=== PATIENT | male | born 1990 | race Caucasian/White ===

== ENCOUNTER 2017-02-05 09:14 | Inpatient (IN) ==
[2017-02-05 10:19] LABS: Basophils # 0.2 10*3/uL (0.0-0.2); Eosinophils # 6.7 10*3/uL (0.0-0.87); Eosinophils % 45.8 % (0.00-10.9); Hematocrit 48.7 VOL% (42.0-52.0); Hemoglobin 17.5 GM/DL (14.0-18.0); Immature Granulocytes % 0.3 %; Immature Granulocytes Absolute 0.04 #; Lymphocytes # 2.4 10*3/uL (1.4-4.0); Lymphocytes % 16.6 % (21.2-54.2); Mean Corpuscular HGB Conc 35.9 GM/DL (32-36); Mean Corpuscular Hemoglobin 32 PG (27-34); Mean Corpuscular Volume 89.5 FL (87-102); Mean Platelet Volume 10.3 FL (9.6-12.0); Monocytes # 0.6 10*3/uL (0.11-0.8); Monocytes % 4.1 % (1.7-12.7); Neutrophils # 4.7 10*3/uL (1.4-7.4); Neutrophils % 32.2 % (38.7-73.9); Platelet Count 190 T/CUMM (130-400); Red Blood Count 5.44 MC/CUMM (3.8-5.5); Red Cell Distribution Width 12.6 % (9.3-17.3); White Blood Count 14.7 T/CUMM (4-12)
--- NOTE | 2017-02-05 10:33 | CT Report ---
CT abdomen pelvis wo con Indication: Right lower quadrant abdominal pain. CT ABDOMEN AND PELVIS WITHOUT CONTRAST DLP: 205 mGy*cm. One or more of the following dose reduction techniques was used: Automated exposure control, adjustment of the mA and/or kV according the patient size, or use of iterative reconstruction techniques. Comparison: None. Technique: Axial noncontrast CT images of the abdomen and pelvis were obtained. Abdomen: Nonobstructing bilateral nephrolithiasis is present. Largest stone is 3 mm in the right kidney. Unenhanced kidneys are otherwise unremarkable. Heart size is normal. Lung bases are clear. Unenhanced liver, spleen, pancreas, gallbladder and adrenal glands are unremarkable. No bowel obstruction. Inflammation is present along the right paracolic gutter tracking into the right pelvis. Pelvis: The visualized appendix is gas-filled and normal in size. There is inflammation adjacent to the origin of the appendix and cecum as well as small amount of inflammation involving the terminal ileum. Urinary bladder is contracted. Large fat-containing right inguinal hernia is present and may be slightly inflamed as well. It does not contain bowel. Rectosigmoid colon is unremarkable. No free fluid. Impression: 1. Nonspecific inflammation around the cecum and terminal ileum with a normal-appearing gas-filled appendix. Query focal colitis or typhlitis, versus inflammation from #2. 2. Fat-containing right inguinal hernia with mild inflammation associated with the fat. It contains no bowel. This fatty lobulation may be intermittently incarcerated and may cause inflammation of the adjacent tissues including the cecal region. PROCEDURE INTERPRETED AT [facility] DEPARTMENT OF RADIOLOGY Final Report Signed by: Magdiel Gandhi M.D.
[2017-02-05 10:37] LABS: Apearance,Urine CLEAR (Clear); Bilirubin,Urine Negative (Negative); Blood, Urine Negative (Negative); Glucose,Urine (UA) Negative (Negative); Ketones,Urine Negative (Negative); Nitrite,Urine Negative (Negative); Protein,Urine Negative; Urine Color Yellow (Yellow); Urine Specific Gravity 1.012 (1.001-1.035); Urine Urobilinogen < 2.0 EU/DL (0.2-1.0); WBC,Urine <1 /HPF (0-6)
[2017-02-05 10:42] LABS: Eosinophils 50 % (0-10); Lymphocytes 17 % (20-55); Platelet Estimate Normal; Segmented Neutrophils 30 % (50-85); Total Cells Counted 100
[2017-02-05 10:43] LABS: Hypochromasia Slight; Ovalocytes Slight
[2017-02-05 10:50] LABS: Alanine Aminotransferase 36 U/L (16-61); Albumin 4.2 G/DL (3.4-5.0); Alkaline Phosphatase 65 U/L (45-117); Aspartate Amino Transferase 17 U/L (0-37); Bilirubin,Total < 0.39 MG/DL (0.2-1.0); Blood Urea Nitrogen 10 MG/DL (7-18); Calcium 9.2 MG/DL (8.5-10.1); Glucose 97 MG/DL (74-106); Osmolality,Calculated 277.4 MOS/KG (273-304); Potassium 4.4 MMOL/L (3.5-5.1); Sodium 140 MMOL/L (136-145)
--- NOTE | 2017-02-05 10:56 | Emergency Department Note ---
Zion Cesar Rolonda, am scribing for, and in the presence of, Michael Rogers MD 10:04. Sue Cesar Phillip K, MD, personally performed the services described in this documentation, ascribed by Aaron Donovan in my presence, and it is both accurate and complete 056 . Arrival - Arrival Chief Complaint: Urogenital - Male Stated Complaint: stomach extreme stomach pain ED Nursing Triage Note: pain around umbilical area that radiates down into groin and then into right lower back that started one week ago. pt reports that he has used laxatives at home without relief. reports he was dx with a testicular mass when he was 14 and told to follow up with specialist. reports he never did follow up. reports mass in that area has gotten bigger. Mode of Arrival: Ambulatory Limitations: No Limitations Source: Patient, Old Records Reviewed, RN Notes Reviewed - History of Present Illness HPI Narrative: Pt is a 26 y/o male who presents to the ED with c/o abdominal pain with an onset of x1 week. Pt has a PMHx of testicular mass. Pt states that he was Dx with a testicular mass 12 years ago but has not f/u since. He states that the testicular pain is causing the abdominal pain and it radiates down to the groin. He states that his appetite and BM has been nml; last BM was this morning. Pt denies N/V, hematuria, dysuria, but confirms diarrhea. No other complaint/pain in ED. Onset (ago): week(s) Consistency: constant Severity: moderate Severity scale (1-10): 4 Quality: other (radiating) Allergies/Adverse Reactions: Allergies Allergy/AdvReac Type Severity Reaction Status Date / Time Penicillins Allergy Unknown/Unable Verified 10/03/16 10:19 to obtain Home Medications: Home Medications Medication Instructions Recorded Confirmed Type No Known Home Medications [No 02/05/17 02/05/17 History Known Home Medications] Review of System - Review of System 12 point system: reviewed and no additional remarkable complaints except as stated - Review of System Constitutional: Absent: chills, fever Eyes: Absent: discharge Head/Ears/Nose/Throat: Absent: earache Respiratory: Absent: cough Cardiovascular: Absent: chest pain Gastrointestinal: Present: abdominal pain Genitourinary male: Present: testicular pain, testicular mass. Absent: urgency , dysuria, hematuria Musculoskeletal: Absent: arm pain, back pain Skin: Absent: rash Neurological: Absent: headache Psychiatric: Absent: anxiety Endocrine: Absent: cold intolerance Hematological/Lymphatic: Absent: easy bleeding Allergic/Immunologic: Absent: facial swelling Medical,Surgical,& Family Hx - Medical History Reproductive: Reports: Reproductive Problems (testicle mass) - Social History Smoking Status: Smoker, status unknown Exam Vital Signs: Vital Signs Temperature 99.1 F 02/05/17 09:17 Pulse Rate 72 02/05/17 09:17 Respiratory Rate 18 02/05/17 09:17 Blood Pressure 122/92 02/05/17 09:17 O2 Sat by Pulse Oximetry 99 02/05/17 09:17 - General General appearance: alert, in no apparent distress - Head Head exam: Present: atraumatic, normocephalic - Eye Eye exam: Present: PERRL, EOMI - ENT ENT exam: Present: mucous membranes moist. Absent: mucous membranes dry - Neck Neck exam: Present: full ROM. Absent: tenderness - Chest Chest inspection: Present: symmetric chest wall rise. Absent: tenderness - Respiratory Respiratory exam: Present: normal lung sounds bilaterally. Absent: wheezes - Cardiovascular Cardiovascular exam: Present: regular rate, normal rhythm, normal heart sounds. Absent: bradycardia - Abdominal Exam Abdominal exam: Present: soft, tenderness (RLQ tenderness to palpate; LLQ), other (swelling at right inguinal canal ) - Extremities Exam Extremities exam: Present: full ROM. Absent: tenderness - Back Exam Back exam: Present: full ROM. Absent: tenderness - Neurological Exam Neurological exam: Present: alert, oriented X3, CN II-XII intact - Psychiatric Psychiatric exam: Present: normal affect, normal mood - Skin Skin exam: Present: warm, dry, intact, normal color. Absent: rash Course Course Narrative: Patient discussed with Dr. Hester. Results - Labs CBC & BMP: 02/05/17 10:07 02/05/17 10:07 Lab Results: I have reviewed the patients labs Labs: Laboratory Tests 02/05/17 02/05/17 10:07 10:07 WBC 14.7 H RBC 5.44 Hgb 17.5 Hct 48.7 Plt Count 190 Neut % (Auto) 32.2 L Lymph % (Auto) 16.6 L Eos % (Auto) 45.8 H Baso % (Auto) 1.0 H Eos # (Auto) 6.7 H Segmented Neutrophils 30 L Lymphocytes 17 L Eosinophils 50 H Urine pH 7.0 Ur Specific Fowler 1.012 Urine Protein Negative Urine Glucose (UA) Negative Urine Ketones Negative Urine Blood Negative Urine Nitrate Negative Urine Bilirubin Negative Urine Urobilinogen < 2.0 H Urine Leukocytes Negative Urine WBC <1 Ur Culture Indicated? Not indicated Laboratory Tests 02/05/17 10:07 Sodium 140 Potassium 4.4 Chloride 109 H Carbon Dioxide 27 BUN 10 GFR Calculation 120 Glucose 97 AST 17 - Diagnostic Findings Procedure: CT Abdomen and Pelvis: report reviewed by me (1. Nonspecific inflammation around the cecum and terminal ileum with a normal-appearing gas- filled appendix. Query focal colitis it typhilitis, versus inflammation from # 2. 2. Fat-containing right inguinal hernia with mild inflammation associated with the fat. It contains no bowel. This fatty lobulation may be intermittently incarcerated and may cause inflammation of the adjacent tissues including the cecal region.) Disposition Clinical Impression: Right inguinal hernia, Right lower quadrant abdominal pain Case discussed with: patient Disposition: Still a Patient Condition: Guarded Additional Instructions: Admit to Dr. Hester
[2017-02-05] MEDS ORDERED: KETOROLAC 10 MG TABLET PO PRN (12:11)
[2017-02-05] MEDS ORDERED: BISACODYL 5 MG TABLET PO PRN (12:11)
[2017-02-05] MEDS ORDERED: ONDANSETRON 4 MG/2 ML VIAL IV PRN (12:11)
[2017-02-05] MEDS ORDERED: PROMETHAZINE 25 MG/1 ML VIAL IM PRN (12:11)
[2017-02-05] MEDS ORDERED: ACETAMINOPHEN 325 MG TABLET PO PRN (12:11)
--- NOTE | 2017-02-05 14:13 | General Surg History&Physical ---
Assessment and Plan - Time spent with patient Time spent with patient: Greater than 30 minutes (1) Typhlitis Status: Acute Assessment and plan: 26-year-old white male with history of dental problems admitted by Dr. Dover through the emergency room with abdominal pain. Patient does have a right inguinal hernia with some inflammatory changes. He also has a questionable typhlitis. Patient was admitted, started on Cipro and Flagyl, pain and nausea control. Dr. Liao from gastroenterology will be consulted to evaluate. We will go ahead and get labs in the morning. Dr. Dover has seen and examined patient and further recommendations to follow Current Visit: Yes (2) Right inguinal hernia Status: Acute Current Visit: Yes (3) Right lower quadrant abdominal pain Status: Acute Current Visit: Yes History of Present Illness Chief complaint: Abdominal pain History of present illness: Mr. Duque is a 26 year old white male with history of dental problems admitted by Dr. Dover through the emergency room on 02/05/2017 with abdominal pain 1 week. Patient states it started approximately 1 week ago with it in the center of his stomach and it radiates down into the groin and around to his back. Patient describes it as a stabbing pain with cramping and some distention. Patient states when he eats he does get nauseated. He says he has bad teeth and he takes clindamycin off and on for dental issues prior to extractions. He states he does take a lot of Tylenol and Motrin for his dental pain. Patient denies hematemesis or hematochezia. Patient denies headaches, chest pain, shortness of breath, or lower extremity edema. Patient states he did have some nausea today and did vomit a little one time. He states his bowel movements have basically been normal. Patient is afebrile and his vital signs are stable. His white count is elevated to 14.7, CMP is normal, and a UA is negative. CT scan of the abdomen and pelvis showing nonspecific inflammation around the cecum and terminal ileum with normal appendix. Questioning focal colitis or typhlitis versus inflammation from a fat-containing right inguinal hernia. Upon exam, patient is mildly uncomfortable due to pain. He is tender in the right lower quadrant but he has no peritoneal signs or rebound. Patient' s is present and she is very helpful. Home Medications Medication Instructions Recorded Confirmed Type No Known Home Medications [No 02/05/17 02/05/17 History Known Home Medications] Allergies Allergy/AdvReac Type Severity Reaction Status Date / Time Penicillins Allergy Unknown/Unable Verified 10/03/16 10:19 to obtain Medical,Surgical,& Family Hx - Medical History HEENT: History of: Dental Problems Reproductive: Reports: Reproductive Problems (testicle mass) - Surgical History Additional Surgical History: Multiple dental surgeries - Family History Family History: Reports;: Family Heart Disease - Social History Smoking Status: Current every day smoker Frequency of Alcohol Use: None Type of Drug Use: None Marital Status: Lives With:: Spouse Functional capacity: independent ambulation Exam - Constitutional Vitals: Period Temp Pulse Resp BP Sys/Contreras Pulse Ox Last 24 Hr 99.1 F-99.1 F 67-78 18-18 105-145/66-92 98-100 Exam: Constitutional System: Mild distress. No tremulousness. Head: Normocephalic, atraumatic. Ears, Nose and Throat System: No evidence of Otitis or Mastoiditis. No epistaxis or discharge Eyes System: Pupils equal, round, and reactive. Extraocular muscles intact. Neck: Supple, without adenopathy, No jugular venous distention. No thyromegaly, neck mass, or prior surgery apparent. Respiratory System: Chest clear to auscultation. Cardiovascular System: Heart with regular rate and rhythm. No murmur. GI System: Abdomen soft, mildly tender right lower quadrant, no peritoneal signs or rebound. Normo active bowel sounds present. Musculoskeletal System: limbs with no pedal edema. Full distal pulses. Neurological System: No discernable sensory deficit. No aphasia Psychiatric System: Conversation is rational Review of systems: A complete 10 system review of systems was obtained and pertinent positives and negatives per HPI Quality Measures - VTE Contraindication to Pharmacological VTE Prophylaxis: Clinical assessment deems Pt at low risk, no prophalaxis needed Results - Labs CBC & BMP: 02/05/17 10:07 02/05/17 10:07 Lab Results: I have reviewed the past 24 hour labs - Diagnostic Findings Procedure: CT Abdomen and Pelvis: report reviewed by me (CT the abdomen and pelvis shows nonspecific inflammation around the cecum and terminal ileum with gas filled appendix. Question focal colitis versus typhlitis versus inflammation from a fat-containing right inguinal hernia that contains no bowel. )
[2017-02-05] MEDS: CIPROFLOXACIN INJ 400 MG in PREMIX 1 EACH IV SCH (14:23)
[2017-02-05] MEDS: LACTATED RINGERS 1,000 ML IV SCH (14:23)
[2017-02-05] MEDS: metroNIDAZOLE INJ 500 MG in PREMIX 1 EACH IV SCH ×2 (15:32→21:18)
[2017-02-05] MEDS: HYDROmorphone 2 MG/1 ML VIAL IV PRN ×2 (18:11→21:24)
--- NOTE | 2017-02-05 19:06 | Gastrointestinal Consult Note ---
Assessment and Plan (1) Right lower quadrant abdominal pain Status: Acute Assessment and plan: Again this patient has 2 distinct pains one is associated with his right inguinal hernia, a intermittent pain that is less annoying than the periumbilical sharp pain. The inguinal hernia is been present since patient was age 14 he states. Given the CT scan findings this is possibly a enterocolitis mostly affecting the cecal/TI region versus possibly Crohn's disease versus less likely C. difficile given his exposure to clindamycin. The major flaw in these particular diagnoses is the lack of diarrhea and the fact that the patient does not feel better after he is evacuating his stool with help of Dulcolax. His presentation certainly atypical from that standpoint however his systemic illness is certainly adding to his nausea and vomiting, gentle hydration, antibiotics and likely some MiraLAX should help out with this pain ultimately. I would like to be able to get him to the point where he can tolerate a clear liquid diet and undergo colonoscopy in order to definitively rule out Crohn's disease while looking for C. difficile vs. infectious colitis. We will monitor his white blood cell count look at his sedimentation rate, try clear liquids and see how he responds to the MiraLAX. Hopefully over the next few days he will feel well enough to tolerate a prep. Risks of colonoscopy include but are not limited to: Bleeding, infection, perforation, cardiac and pulmonary compromise. Current Visit: Yes (2) Abnormal CT scan, pelvis Status: Acute Assessment and plan: I think typhlitis is a condition associated with neutropenia not leukocytosis and usually with a immunocompromised host. This is not typhlitis but rather some sort of enterocolitis some etiology. He is likely not old enough to have ischemic etiologies and so this probably represents either inflammatory bowel disease or some sort of infection, provided this is not just an over read by the radiologist. C. difficile does not affect the small bowel making this more likely to be infectious versus inflammatory bowel disease, i.e. Crohn's. Current Visit: Yes (3) Leukocytosis Status: Acute Assessment and plan: We will need to monitor this over the next several days, as it drops down to the normal range of suspect the patient will be able to tolerate clears and the colonic prep. Current Visit: Yes (4) Right inguinal hernia Status: Acute Assessment and plan: This is the second of the patient's 2 pains, I suspect Dr. Dover will want to do surgery on the patient at some point, likely after we get his current periumbilical pain/right upper quadrant pain under control. Current Visit: Yes History of Present Illness Chief complaint: Periumbilical pain/RLQ pain, TI/cecal inflammation by CT, 14.7 WBCs History of present illness: Mr. Duque is a 26 year old male with a history of inguinal hernia problems on the right side on and off for the last 12 years. Over the last 1 week the patient has had 2 distinct types of pain the first is a dull achy pressure coming from his scrotum and radiating up into his stomach which was worsened by Dr. Dover's exam today and likely corresponds to his right inguinal hernia type pain. The second is also been going on for the last 1 week and is associated with a periumbilical sharp pain with nausea and vomiting especially today that may correspond with the changes seen on CT scan with thickening of the terminal ileum and cecal regions. A gas-filled appendix that is normal in size without fat stranding is noted. Interestingly when you press on his umbilical area (where he states the pain resides) he has less pain than when pressure is applied to the right lower quadrant. He does have a white blood cell count that is elevated to 14.7. Of interest the patient does not have diarrhea and has not throughout this entire week's time. He actually took some Dulcolax to help him pass some stool and although he was passing watery stool this did not make him feel any better. This is not IBS. Patient does have a history of dental problems for which she chronically takes clindamycin but again one would imagine that he would have diarrhea and he was having colitis. There is no family history of inflammatory bowel disease specifically Crohn's that he knows of. There is no family history of colorectal cancer or polyps. He is not feeling fevers or chills specifically. Home Medications Medication Instructions Recorded Confirmed Type No Known Home Medications [No 02/05/17 02/05/17 History Known Home Medications] Allergies Allergy/AdvReac Type Severity Reaction Status Date / Time Penicillins Allergy Unknown/Unable Verified 10/03/16 10:19 to obtain Medical,Surgical,& Family Hx - Medical History HEENT: History of: Dental Problems Reproductive: Reports: Reproductive Problems (testicle mass) - Family History Family History: Reports;: Family Heart Disease - Social History Smoking Status: Current every day smoker Frequency of Alcohol Use: None Type of Drug Use: None Review of systems: Constitutional: Denies fever, chills, but positive for recent nausea, and vomiting, mostly today Eyes: Denies dry eyes, and scleral icterus HENT: Denies headaches Cardiovascular: Denies acute chest pain and claudication Respiratory: Denies shortness of breath, wheezing, and difficulty breathing, denies cough Gastrointestinal: As noted in the HPI Genitourinary: Denies dysuria and hematuria Neurologic: Denies vision loss, and loss of sensation Musculoskeletal: Denies joint swelling, joint stiffness, and muscular weakness Psychiatric: Denies depression and teresa symptoms Heme-Lymph: Denies easy bruising, lymph node enlargement or tenderness, night sweats, excessive bleeding Allergies-immunologic: Denies pruritus and rhinorrhea Exam - Constitutional Vitals: Period Temp Pulse Resp BP Sys/Contreras Pulse Ox Last 24 Hr 98.0 F-99.1 F 57-78 17-18 105-145/45-92 98-100 Exam: Constitutional: Well-developed, well-nourished, alert, and in no acute distress Head and face: Head: Normocephalic atraumatic Eyes: Conjunctiva without injection, no gross scleral icterus, pupils equal and round bilaterally Ears: Intact to conversation in both ears Nose: External appearance is normal, nares patent Mouth: Oral mucous membranes moist without erythema dentition noted to be without erosion Neck: Normal appearance, no masses or tenderness, trachea midline Thyroid: Gland midline and appropriate size for age Respiratory: Normal respiratory effort, clear to auscultation without wheezes, rhonchi or rales Cardiovascular: Regular rate and rhythm, normal S1, S2, the exam is without rubs, murmurs or gallops. Gastrointestinal: Is tenderness to deep palpation in the right lower quadrant but none in the periumbilical region, I did not aggressively check the patient's inguinal canal which had previously been done by Dr. Dover. Normal active bowel sounds, tone normal without rigidity or guarding, no masses present , no hepatomegaly, no spleen tip felt. Rectal exam demonstrated good tone, brown stool, guaiac negative and normal-sized non-boggy prostate. Lymphatic: Neck without adenopathy, axilla without lymphadenopathy present Musculoskeletal: Right and left lower extremities without evidence of edema Skin and subcutaneous tissue: No rashes or ulcerations noted, normal skin turgor, digits and nails without clubbing/cyanosis/deformities. Neurologic: The patient is grossly oriented to person place and time, cranial nerves show tongue movements are normal with normal tongue extrusion midline, light touch sensation is intact. Psychiatric: No hallucinations or delusions are present, does not appear depressed Results - Labs CBC & BMP: 02/05/17 10:07 02/05/17 10:07 Quality Measures - VTE Contraindication to Pharmacological VTE Prophylaxis: Clinical assessment deems Pt at low risk, no prophalaxis needed
[2017-02-05] MEDS: POLYETHYLENE GLYCOL POWDER 17 GM PACK PO SCH (21:16)
[2017-02-06] MEDS: CIPROFLOXACIN INJ 400 MG in PREMIX 1 EACH IV SCH ×3 (00:36→12:30)
[2017-02-06] MEDS: metroNIDAZOLE INJ 500 MG in PREMIX 1 EACH IV SCH ×3 (05:12→21:47)
--- NOTE | 2017-02-06 07:07 | Gastrointestinal Progress Note ---
Assessment and Plan (1) Right lower quadrant abdominal pain Status: Acute Assessment and plan: Again this patient has 2 distinct pains one is associated with his right inguinal hernia, a intermittent pain that is less annoying than the periumbilical sharp pain. The inguinal hernia is been present since patient was age 14 he states. Given the CT scan findings this is possibly a enterocolitis mostly affecting the cecal/TI region versus possibly Crohn's disease versus less likely C. difficile given his exposure to clindamycin. The major flaw in these particular diagnoses is the lack of diarrhea and the fact that the patient does not feel better after he is evacuating his stool with help of Dulcolax. His presentation certainly atypical from that standpoint however his systemic illness is certainly adding to his nausea and vomiting, gentle hydration, antibiotics and likely some MiraLAX should help out with this pain ultimately. I would like to be able to get him to the point where he can tolerate a clear liquid diet and undergo colonoscopy in order to definitively rule out Crohn's disease while looking for C. difficile vs. infectious colitis. We will monitor his white blood cell count look at his sedimentation rate, try clear liquids and see how he responds to the MiraLAX. Hopefully over the next few days he will feel well enough to tolerate a prep. Risks of colonoscopy include but are not limited to: Bleeding, infection, perforation, cardiac and pulmonary compromise. 02/06/17--the patient is going to try his clear liquids today to see have the stay down. We have gotten her stool studies to look at for fecal white blood cells, stool culture, or C. difficile. Again I strongly suspect this patient may either have Crohn's disease versus infectious colitis although C. difficile remains in the differential. We need to track his white blood cell count now that he is on Cipro and Flagyl, these can be switched to oral once he is reliably taking p.o. intake. Possible colonoscopy later this admission if the patient does well with clears we can possibly give him a bowel prep--will write for this tomorrow if he is doing well. Current Visit: Yes (2) Abnormal CT scan, pelvis Status: Acute Assessment and plan: I think typhlitis is a condition associated with neutropenia not leukocytosis and usually with a immunocompromised host. This is not typhlitis but rather some sort of enterocolitis some etiology. He is likely not old enough to have ischemic etiologies and so this probably represents either inflammatory bowel disease or some sort of infection, provided this is not just an over read by the radiologist. C. difficile does not affect the small bowel making this more likely to be infectious versus inflammatory bowel disease, i.e. Crohn's. 02/06/17--As noted above, the patient does not fit the picture of typhlitis. Current Visit: Yes (3) Leukocytosis Status: Acute Assessment and plan: We will need to monitor this over the next several days, as it drops down to the normal range of suspect the patient will be able to tolerate clears and the colonic prep. 02/06/17--CBC from this morning is pending but I suspect the white blood cell count will be significantly improved. Current Visit: Yes (4) Right inguinal hernia Status: Acute Assessment and plan: This is the second of the patient's 2 pains, I suspect Dr. Dover will want to do surgery on the patient at some point, likely after we get his current periumbilical pain/right upper quadrant pain under control. 02/06/17--Treatment as per Dr. Dover. Current Visit: Yes Gastroenterology - PN: Subj Interval history: Patient's pain this morning is down to a 5 out of 10 in the periumbilical region (radiating down to the right lower abdomen this is where he is most tender and still quite touchy when pressed moderately.), The right inguinal pain is down to a 4 out of 10. He has not had any bowel movements despite the MiraLAX but he is probably just going to start is clear liquids today and see how his oral intake proceeds. Exam (Progress Note) - Constitutional Vitals: Period Temp Pulse Resp BP Sys/Contreras Pulse Ox Last 24 Hr 97.6 F-99.1 F 51-78 16-20 105-145/45-92 98-100 General appearance: no acute distress - Eye Eye exam: Present: EOMI Pupils: Present: JERZY - Respiratory Respiratory exam: Present: clear to auscultation bilaterally. Absent: rhonchi, stridor, wheezes - Cardiovascular Cardiovascular exam: Present: regular rate and rhythm - GI/Abdominal GI/Abdominal exam: Present: normal bowel sounds, tenderness (Mostly in the right lower abdomen, moderate today versus severe yesterday on palpation), soft. Absent: distended, guarding, rebound - Neurological Exam Neurological exam: Present: alert, oriented X3 - Psychiatric Psychiatric exam: Present: normal affect, normal mood - Skin Skin exam: Present: warm Results - Labs CBC & BMP: 02/05/17 10:07 02/05/17 10:07
[2017-02-06] MEDS: LACTATED RINGERS 1,000 ML IV SCH ×2 (07:15→09:11)
[2017-02-06] MEDS: PANTOPRAZOLE 40 MG TABLET PO SCH (08:01)
[2017-02-06] MEDS: POLYETHYLENE GLYCOL POWDER 17 GM PACK PO SCH ×2 (08:02→21:46)
[2017-02-06 08:55] LABS: Basophils # 0.1 10*3/uL (0.0-0.2); Basophils % 0.6 % (0.0-0.8); Eosinophils # 5.9 10*3/uL (0.0-0.87); Eosinophils % 38.5 % (0.00-10.9); Hemoglobin 17.3 GM/DL (14.0-18.0); Immature Granulocytes % 0.4 %; Immature Granulocytes Absolute 0.06 #; Lymphocytes % 13.2 % (21.2-54.2); Mean Corpuscular Hemoglobin 33 PG (27-34); Mean Corpuscular Volume 90.1 FL (87-102); Monocytes # 0.8 10*3/uL (0.11-0.8); Neutrophils # 6.5 10*3/uL (1.4-7.4); Neutrophils % 42.3 % (38.7-73.9); Platelet Count 214 T/CUMM (130-400); Red Blood Count 5.33 MC/CUMM (3.8-5.5); Red Cell Distribution Width 12.7 % (9.3-17.3); White Blood Count 15.3 T/CUMM (4-12)
[2017-02-06 09:26] LABS: Albumin 4.2 G/DL (3.4-5.0); Bilirubin,Total 0.6 MG/DL (0.2-1.0); Calcium 9.6 MG/DL (8.5-10.1); Osmolality,Calculated 275.5 MOS/KG (273-304); Potassium 4.3 MMOL/L (3.5-5.1); Total Protein 7.2 G/DL (6.4-8.3)
[2017-02-06 09:52] LABS: Eosinophils 22 % (0-10); Hypochromasia 1+; Lymphocytes 11 % (20-55); Myelocytes 1 %; Platelet Estimate Adequate; Segmented Neutrophils 61 % (50-85); Total Cells Counted 100
--- NOTE | 2017-02-06 10:26 | General Surgery Progress Note ---
Assessment and Plan - Time spent with patient Time spent with patient: Less than 30 minutes (1) Typhlitis Status: Acute Assessment and plan: 26-year-old white male with history of dental problems admitted by Dr. Dover through the emergency room with abdominal pain. Patient does have a right inguinal hernia with some inflammatory changes. He also has a questionable typhlitis. Patient was admitted, started on Cipro and Flagyl, pain and nausea control. Dr. Liao from gastroenterology will be consulted to evaluate. We will go ahead and get labs in the morning. Dr. Dover has seen and examined patient and further recommendations to follow. 02/06/2017 patient's pain is mildly improved today. His white count is higher though at 15. He did not tolerate his clear liquid diet this morning. Recommended to patient to take Zofran prior to his next meal to see if it helps with his nausea. Dr. Liao has seen and examined patient and he suspects Crohn 's disease versus infectious colitis versus C. difficile though the patient does not have diarrhea. He is checking stool studies and recommends continuing Cipro and Flagyl. He would like patient to be able to tolerate his bowel prep for C scope later in his admission. Dr. Dover will see and examine patient and further recommendations to follow. Current Visit: Yes (2) Right inguinal hernia Status: Acute Current Visit: Yes (3) Right lower quadrant abdominal pain Status: Acute Current Visit: Yes Subjective Narrative: Patient states his abdominal pain is mildly improved from yesterday. He feels like he is hungry but when the clear liquid tray was placed in front of him the smell made him nauseated so he did not eat much. Exam - Constitutional Vitals: Period Temp Pulse Resp BP Sys/Contreras Pulse Ox Last 24 Hr 97.6 F-98.4 F 51-78 16-20 105-145/45-76 98-100 Exam: 26-year-old white male, no acute distress, alert and oriented in the room Chest clear CV regular rate and rhythm Abdomen soft, mild tenderness right lower quadrant Extremities no edema Results - Labs CBC & BMP: 02/06/17 08:27 02/06/17 08:27 Lab Results: I have reviewed the past 24 hour labs Quality Measures - VTE Contraindication to Pharmacological VTE Prophylaxis: Clinical assessment deems Pt at low risk, no prophalaxis needed
[2017-02-07] MEDS: LACTATED RINGERS 1,000 ML IV SCH (00:32)
[2017-02-07] MEDS: CIPROFLOXACIN INJ 400 MG in PREMIX 1 EACH IV SCH ×2 (00:33→12:42)
[2017-02-07] MEDS: metroNIDAZOLE INJ 500 MG in PREMIX 1 EACH IV SCH ×3 (05:49→20:30)
[2017-02-07 06:33] LABS: Basophils # 0.1 10*3/uL (0.0-0.2); Eosinophils # 6.2 10*3/uL (0.0-0.87); Eosinophils % 46.3 % (0.00-10.9); Hematocrit 44.2 VOL% (42.0-52.0); Hemoglobin 15.6 GM/DL (14.0-18.0); Immature Granulocytes % 0.2 %; Immature Granulocytes Absolute 0.03 #; Lymphocytes # 2.6 10*3/uL (1.4-4.0); Lymphocytes % 19.3 % (21.2-54.2); Mean Corpuscular HGB Conc 35.3 GM/DL (32-36); Mean Corpuscular Hemoglobin 32 PG (27-34); Mean Corpuscular Volume 90.2 FL (87-102); Mean Platelet Volume 10.8 FL (9.6-12.0); Monocytes # 0.8 10*3/uL (0.11-0.8); Monocytes % 5.9 % (1.7-12.7); Neutrophils # 3.7 10*3/uL (1.4-7.4); Neutrophils % 27.3 % (38.7-73.9); Platelet Count 183 T/CUMM (130-400); Red Cell Distribution Width 12.5 % (9.3-17.3); White Blood Count 13.4 T/CUMM (4-12)
[2017-02-07 06:57] LABS: Eosinophils 52 % (0-10); Giant Platelets Few; Hypochromasia 1+; Lymphocytes 12 % (20-55); Platelet Estimate Normal; Segmented Neutrophils 30 % (50-85); Total Cells Counted 100
[2017-02-07] MEDS: PANTOPRAZOLE 40 MG TABLET PO SCH (07:59)
[2017-02-07] MEDS: POLYETHYLENE GLYCOL POWDER 17 GM PACK PO SCH (08:01)
--- NOTE | 2017-02-07 09:02 | Gastrointestinal Progress Note ---
Assessment and Plan (1) Right lower quadrant abdominal pain Status: Acute Assessment and plan: Again this patient has 2 distinct pains one is associated with his right inguinal hernia, a intermittent pain that is less annoying than the periumbilical sharp pain. The inguinal hernia is been present since patient was age 14 he states. Given the CT scan findings this is possibly a enterocolitis mostly affecting the cecal/TI region versus possibly Crohn's disease versus less likely C. difficile given his exposure to clindamycin. The major flaw in these particular diagnoses is the lack of diarrhea and the fact that the patient does not feel better after he is evacuating his stool with help of Dulcolax. His presentation certainly atypical from that standpoint however his systemic illness is certainly adding to his nausea and vomiting, gentle hydration, antibiotics and likely some MiraLAX should help out with this pain ultimately. I would like to be able to get him to the point where he can tolerate a clear liquid diet and undergo colonoscopy in order to definitively rule out Crohn's disease while looking for C. difficile vs. infectious colitis. We will monitor his white blood cell count look at his sedimentation rate, try clear liquids and see how he responds to the MiraLAX. Hopefully over the next few days he will feel well enough to tolerate a prep. Risks of colonoscopy include but are not limited to: Bleeding, infection, perforation, cardiac and pulmonary compromise. 02/06/17--the patient is going to try his clear liquids today to see have the stay down. We have gotten her stool studies to look at for fecal white blood cells, stool culture, or C. difficile. Again I strongly suspect this patient may either have Crohn's disease versus infectious colitis although C. difficile remains in the differential. We need to track his white blood cell count now that he is on Cipro and Flagyl, these can be switched to oral once he is reliably taking p.o. intake. Possible colonoscopy later this admission if the patient does well with clears we can possibly give him a bowel prep--will write for this tomorrow if he is doing well. 02/07/17--50% eosinophilia is not a fluke on CBC differential. Called specifically for hand diff confirmation (no answer), left message to caregiver. This level of eosinophilia likely due to parasites vs. Crohn's. Since tolerating clears will prep for colo tomorrow. Keep on clears, needs O&P x 3 stools. We can likely switch to oral abx and solids post colo tomorrow. May be able to see "worm burden" if present. Current Visit: Yes (2) Abnormal CT scan, pelvis Status: Acute Assessment and plan: I think typhlitis is a condition associated with neutropenia not leukocytosis and usually with a immunocompromised host. This is not typhlitis but rather some sort of enterocolitis some etiology. He is likely not old enough to have ischemic etiologies and so this probably represents either inflammatory bowel disease or some sort of infection, provided this is not just an over read by the radiologist. C. difficile does not affect the small bowel making this more likely to be infectious versus inflammatory bowel disease, i.e. Crohn's. 02/06/17--As noted above, the patient does not fit the picture of typhlitis. 02/07/17-- As noted. Current Visit: Yes (3) Leukocytosis Status: Acute Assessment and plan: We will need to monitor this over the next several days, as it drops down to the normal range of suspect the patient will be able to tolerate clears and the colonic prep. 02/06/17--CBC from this morning is pending but I suspect the white blood cell count will be significantly improved. 02/07/17-- No significant change. Current Visit: Yes (4) Right inguinal hernia Status: Acute Assessment and plan: This is the second of the patient's 2 pains, I suspect Dr. Dover will want to do surgery on the patient at some point, likely after we get his current periumbilical pain/right upper quadrant pain under control. 02/06/17--Treatment as per Dr. Dover. 02/07/17-- Same as above. Pt. does feel better. Current Visit: Yes Gastroenterology - PN: Subj Interval history: Tolerating clear liquids well. Plan colo for tomorrow. 50% eosinophilia per machine check. ? Parasites, colo tomorrow after clears--> ova and parasites x 3 stools. Exam (Progress Note) - Constitutional Vitals: Period Temp Pulse Resp BP Sys/Contreras Pulse Ox Last 24 Hr 98.1 F-98.8 F 49-59 16-20 96-135/45-75 98-100 General appearance: no acute distress - Head Head exam: Present: normocephalic - Eye Eye exam: Present: EOMI Pupils: Present: JERZY - Respiratory Respiratory exam: Present: clear to auscultation bilaterally - Cardiovascular Cardiovascular exam: Present: regular rate and rhythm - GI/Abdominal GI/Abdominal exam: Present: normal bowel sounds, tenderness (periumbilical<RLQ pain), soft. Absent: rebound - Extremities Exam Extremities exam: Present: normal inspection - Neurological Exam Neurological exam: Present: alert, oriented X3 - Skin Skin exam: Present: normal color Results - Labs CBC & BMP: 02/07/17 05:44 02/06/17 08:27
[2017-02-07] MEDS: BISACODYL 5 MG TABLET PO SCH ×2 (11:11→16:39)
--- NOTE | 2017-02-07 13:53 | General Surgery Progress Note ---
Assessment and Plan - Time spent with patient Time spent with patient: Less than 30 minutes (1) Typhlitis Status: Acute Assessment and plan: 26-year-old white male with history of dental problems admitted by Dr. Dover through the emergency room with abdominal pain. Patient does have a right inguinal hernia with some inflammatory changes. He also has a questionable typhlitis. Patient was admitted, started on Cipro and Flagyl, pain and nausea control. Dr. Liao from gastroenterology will be consulted to evaluate. We will go ahead and get labs in the morning. Dr. Dover has seen and examined patient and further recommendations to follow. 02/06/2017 patient's pain is mildly improved today. His white count is higher though at 15. He did not tolerate his clear liquid diet this morning. Recommended to patient to take Zofran prior to his next meal to see if it helps with his nausea. Dr. Liao has seen and examined patient and he suspects Crohn 's disease versus infectious colitis versus C. difficile though the patient does not have diarrhea. He is checking stool studies and recommends continuing Cipro and Flagyl. He would like patient to be able to tolerate his bowel prep for C scope later in his admission. Dr. Dover will see and examine patient and further recommendations to follow. 02/07/2017 patient feels much better today with much less pain except for minimally in the right lower quadrant. Continues to have reducible right inguinal hernia that will need fixed when infection clears. Dr. Dover would prefer to do this during his hospital stay if possible. Dr. Liao is concerned patient may have a parasite infection due to 50% eosinophilia on CBC differential versus Crohn's. Patient is being kept on clears today and will undergo colon prep for C scope in the morning by Dr. Liao. Discussed with Dr. Dover Current Visit: Yes (2) Right inguinal hernia Status: Acute Current Visit: Yes (3) Right lower quadrant abdominal pain Status: Acute Current Visit: Yes Subjective Narrative: Patient is feeling much better. He is tolerating a clear liquid diet with minimal nausea. Exam - Constitutional Vitals: Period Temp Pulse Resp BP Sys/Contreras Pulse Ox Last 24 Hr 97.8 F-98.8 F 49-59 16-20 96-135/45-75 98-100 Exam: 26-year-old white male, no acute distress, alert and oriented Chest clear CV regular rate and rhythm Abdomen soft, minimally tender right lower quadrant, reducible right inguinal hernia Extremities no edema Results - Labs CBC & BMP: 02/07/17 05:44 02/06/17 08:27 Lab Results: I have reviewed the past 24 hour labs Quality Measures - VTE Contraindication to Pharmacological VTE Prophylaxis: Clinical assessment deems Pt at low risk, no prophalaxis needed
[2017-02-07] MEDS ORDERED: POLYETHYLENE GLYCOL POWDER 255 GM BOTTLE PO ONE ×2 (18:00→20:00)
[2017-02-07] MEDS ORDERED: MAGNESIUM CITRATE 300 ML BOTTLE PO ONE (21:00)
[2017-02-08] MEDS: LACTATED RINGERS 1,000 ML IV SCH ×2 (00:35→12:46)
[2017-02-08] MEDS: BISACODYL 5 MG TABLET PO SCH (00:35)
[2017-02-08] MEDS: CIPROFLOXACIN INJ 400 MG in PREMIX 1 EACH IV SCH ×2 (01:17→12:41)
[2017-02-08] MEDS: metroNIDAZOLE INJ 500 MG in PREMIX 1 EACH IV SCH ×3 (05:35→21:15)
[2017-02-08] MEDS: PANTOPRAZOLE 40 MG TABLET PO SCH (08:32)
--- NOTE | 2017-02-08 13:01 | General Surgery Progress Note ---
Assessment and Plan - Time spent with patient Time spent with patient: Less than 30 minutes (1) Typhlitis Status: Acute Assessment and plan: 26-year-old white male with history of dental problems admitted by Dr. Dover through the emergency room with abdominal pain. Patient does have a right inguinal hernia with some inflammatory changes. He also has a questionable typhlitis. Patient was admitted, started on Cipro and Flagyl, pain and nausea control. Dr. Liao from gastroenterology will be consulted to evaluate. We will go ahead and get labs in the morning. Dr. Dover has seen and examined patient and further recommendations to follow. 02/06/2017 patient's pain is mildly improved today. His white count is higher though at 15. He did not tolerate his clear liquid diet this morning. Recommended to patient to take Zofran prior to his next meal to see if it helps with his nausea. Dr. Liao has seen and examined patient and he suspects Crohn 's disease versus infectious colitis versus C. difficile though the patient does not have diarrhea. He is checking stool studies and recommends continuing Cipro and Flagyl. He would like patient to be able to tolerate his bowel prep for C scope later in his admission. Dr. Dover will see and examine patient and further recommendations to follow. 02/07/2017 patient feels much better today with much less pain except for minimally in the right lower quadrant. Continues to have reducible right inguinal hernia that will need fixed when infection clears. Dr. Dover would prefer to do this during his hospital stay if possible. Dr. Liao is concerned patient may have a parasite infection due to 50% eosinophilia on CBC differential versus Crohn's. Patient is being kept on clears today and will undergo colon prep for C scope in the morning by Dr. Liao. Discussed with Dr. Dover 02/08/2017 patient feels 100% today. He is having no nausea or vomiting with clear liquid diet or with the prep. He has no complaints of pain in the abdomen. Dr. Liao is taking the patient for C scope today. Stool studies thus far are negative. He is afebrile and his white count is down to 13.4. Depending on what Dr. Liao sees on C scope will depend on patient's plan of care. Home later this evening versus possible surgery tomorrow for hernia repair. Discussed with Dr. Dover. Current Visit: Yes (2) Right inguinal hernia Status: Acute Current Visit: Yes (3) Right lower quadrant abdominal pain Status: Acute Current Visit: Yes Subjective Narrative: Patient feels really good today. He had no nausea with his clears yesterday and he tolerated his prep just fine. He has no abdominal pain other than the right inguinal region is still mildly tender he is awaiting C scope by Dr. Liao right now. Exam - Constitutional Vitals: Period Temp Pulse Resp BP Sys/Contreras Pulse Ox Last 24 Hr 97.2 F-99.3 F 60-70 16-18 90-136/56-77 98-99 Exam: 26-year-old white male, no acute distress, alert and oriented Chest clear CV regular rate and rhythm Abdomen soft and nontender Extremities no edema Results - Labs CBC & BMP: 02/07/17 05:44 02/06/17 08:27 Lab Results: I have reviewed the past 24 hour labs Quality Measures - VTE Contraindication to Pharmacological VTE Prophylaxis: Clinical assessment deems Pt at low risk, no prophalaxis needed
[2017-02-08] MEDS ORDERED: LIDOCAINE 1% 5 ML VIAL ONE (14:02)
[2017-02-08] MEDS ORDERED: PROPOFOL 200 MG/20 ML VIAL IV ONE (14:02)
--- NOTE | 2017-02-08 14:31 | Operative Note ---
Date of procedure: 02/08/17 Pre-op diagnosis: Leukocytosis and TI/cecum inflammation Post-op diagnosis: other (Sigmoid colon with inflammation and apparent worm status post biopsy. Small hemorrhoids noted on retroflex, routine biopsies taken in the terminal ileum and cecum but this is not Crohn's disease.) Procedure: PROCEDURE: Colonoscopy with cold biopsies for pathology REFERRING PHYSICIAN: Dr. Julius Dover MD INDICATIONS: Inflammation noted in the terminal ileum/cecal regions, abdominal pain, leukocytosis, the prior H&P was reviewed and interrim changes are as noted: ENDOSCOPIST: Sandeep Liao MD ENDOSCOPE: [employer] 100 System colonoscope COLON PREPARATION: 238 gm of PEG containing laxative and 1.9 liters of gatoraid/sports drink and dulcolax 15 mg q8 hours x 3 ASA CLASS: 2 EXAM: CV: regular rate and rhythm Respiratory: Clear without wheezes Abdominal: active bowel sounds Rectal: Good tone, no fissures or fistulas MEDICATION: Per nursing anesthesia protocol, see their notes PROCEDURE: After discussion of the potential risks and benefits of colonoscopy, the informed consent was obtained, from patient or health care surrogate. The patient was then placed in the left lateral decubitus position where sedation was achieved as noted above. Rectal examination was followed by insertion of the colonoscope. The colonoscope was passed under direct visualization to the cecum. Advancement was facilitated by insertion/withdrawl techniques, abdominal pressure and patient positioning. Once the cecal pole was reached, slow withdrawal was performed with the findings as noted below. The patient tolerated the procedure well and without complication. QUALITY OF PREP: Very good WITHDRAWL TIME: 7 minutes 13 seconds BIOPSIES: TI, cecum/ascending, sigmoid with worm PHOTOGRAPHS: Obtained FINDINGS: The musoca appeared normal in the following regions: rectum, descending colon, splenic flexure, transverse colon, hepatic flexure, ascending colon and cecum. Position within the cecum was confirmed by ileocecal valve, appendiceal oriface, and the convergence of folds (crows foot). No polyp, mass or AVM was noted throughout the colon. The patient had a localized area in the sigmoid where there was inflammation with what appeared to be a worm burrowing through the wall of the colon, several photographs were taken of this parasite, attempts were made to retrieve this with biopsy forceps as well. No diverticulosis noted. The terminal ileum fairly normal biopsies were taken here as well as in the ascending/cecum at this appeared to be the area of previous involvement on CT scan. Intubation of the TI was achieved x 5 cm with normal appearence IMPRESSION: Sigmoid colon with inflammation and apparent worm status post biopsy. Small hemorrhoids noted on retroflex, routine biopsies taken in the terminal ileum and cecum but this is not Crohn's disease. RECOMMENDATIONS: High fiber diet Await pathology to see if worm speciation can be made. Await O&P's Consider consultation to infectious disease. Repeat colonosocopy will be repeated at age 49 Citrucel 1 tablespoon in 12 oz juice BID: 1 bottle: :11 Follow up by phone for biopsy results in 1-2 weeks by phone Sandeep Liao MD COPY TO: Julius Dover MD Anesthesia: MAC Surgeon / Physician: Sandeep Liao Estimated blood loss: minimal Specimens: other (Sigmoid inflammation and worm biopsy, cecum/ascending, TI routine biopsies) Condition: stable Disposition: post procedure unit ([facility] Suite) Results - Labs CBC & BMP: 02/07/17 05:44 02/06/17 08:27 Discharge Plan - Discharge Medications No Action No Known Home Medications [No Known Home Medications] - Follow Up or Referral - Forms/Instructions
--- NOTE | 2017-02-08 14:32 | Anesthesia Post-Op ---
Anesthesia Post OP - Post Ansesthetic Evaluation Patient seen in post op: Yes Resp: within normal limits CV: within normal limits Mental: within normal limits Temp: within normal limits [id number]: within normal limits Nausea and Vomiting: within normal limits Pain: within normal limits
--- NOTE | 2017-02-08 14:35 | Gastrointestinal Progress Note ---
Assessment and Plan (1) Right lower quadrant abdominal pain Status: Acute Assessment and plan: Again this patient has 2 distinct pains one is associated with his right inguinal hernia, a intermittent pain that is less annoying than the periumbilical sharp pain. The inguinal hernia is been present since patient was age 14 he states. Given the CT scan findings this is possibly a enterocolitis mostly affecting the cecal/TI region versus possibly Crohn's disease versus less likely C. difficile given his exposure to clindamycin. The major flaw in these particular diagnoses is the lack of diarrhea and the fact that the patient does not feel better after he is evacuating his stool with help of Dulcolax. His presentation certainly atypical from that standpoint however his systemic illness is certainly adding to his nausea and vomiting, gentle hydration, antibiotics and likely some MiraLAX should help out with this pain ultimately. I would like to be able to get him to the point where he can tolerate a clear liquid diet and undergo colonoscopy in order to definitively rule out Crohn's disease while looking for C. difficile vs. infectious colitis. We will monitor his white blood cell count look at his sedimentation rate, try clear liquids and see how he responds to the MiraLAX. Hopefully over the next few days he will feel well enough to tolerate a prep. Risks of colonoscopy include but are not limited to: Bleeding, infection, perforation, cardiac and pulmonary compromise. 02/06/17--the patient is going to try his clear liquids today to see have the stay down. We have gotten her stool studies to look at for fecal white blood cells, stool culture, or C. difficile. Again I strongly suspect this patient may either have Crohn's disease versus infectious colitis although C. difficile remains in the differential. We need to track his white blood cell count now that he is on Cipro and Flagyl, these can be switched to oral once he is reliably taking p.o. intake. Possible colonoscopy later this admission if the patient does well with clears we can possibly give him a bowel prep--will write for this tomorrow if he is doing well. 02/07/17--50% eosinophilia is not a fluke on CBC differential. Called specifically for hand diff confirmation (no answer), left message to caregiver. This level of eosinophilia likely due to parasites vs. Crohn's. Since tolerating clears will prep for colo tomorrow. Keep on clears, needs O&P x 3 stools. We can likely switch to oral abx and solids post colo tomorrow. May be able to see "worm burden" if present. 02/08/17--Surprisingly, the one finding on the colonoscopy was the appearance of a worm in the sigmoid colon burrowing into the wall. O&P has been ordered, photographs were taken of this worm--would suggest that this might be either roundworm or hookworm, I would recommend getting infectious disease involved at this point. Current Visit: Yes (2) Abnormal CT scan, pelvis Status: Acute Assessment and plan: I think typhlitis is a condition associated with neutropenia not leukocytosis and usually with a immunocompromised host. This is not typhlitis but rather some sort of enterocolitis some etiology. He is likely not old enough to have ischemic etiologies and so this probably represents either inflammatory bowel disease or some sort of infection, provided this is not just an over read by the radiologist. C. difficile does not affect the small bowel making this more likely to be infectious versus inflammatory bowel disease, i.e. Crohn's. 02/06/17--As noted above, the patient does not fit the picture of typhlitis. 02/07/17-- As noted. 02/08/17--The appearance of the terminal ileum and the cecum on colonoscopy were relatively normal, this is not Crohn's disease. Current Visit: Yes (3) Leukocytosis Status: Acute Assessment and plan: We will need to monitor this over the next several days, as it drops down to the normal range of suspect the patient will be able to tolerate clears and the colonic prep. 02/06/17--CBC from this morning is pending but I suspect the white blood cell count will be significantly improved. 02/07/17-- No significant change. 02/08/17--we will run another CBC tomorrow. Current Visit: Yes (4) Right inguinal hernia Status: Acute Assessment and plan: This is the second of the patient's 2 pains, I suspect Dr. Dover will want to do surgery on the patient at some point, likely after we get his current periumbilical pain/right upper quadrant pain under control. 02/06/17--Treatment as per Dr. Dover. 02/07/17-- Same as above. Pt. does feel better. Current Visit: Yes Gastroenterology - PN: Subj Interval history: No new complaints, feels hungry, would like to have pizza Exam (Progress Note) - Constitutional Vitals: Period Temp Pulse Resp BP Sys/Contreras Pulse Ox Last 24 Hr 97.2 F-99.3 F 60-79 15-18 90-136/56-88 98-100 General appearance: no acute distress - Respiratory Respiratory exam: Present: clear to auscultation bilaterally - Cardiovascular Cardiovascular exam: Present: regular rate and rhythm - GI/Abdominal GI/Abdominal exam: Present: normal bowel sounds, guarding, soft. Absent: tenderness, rebound - Extremities Exam Extremities exam: Absent: edema - Back Exam Back exam: Present: normal inspection - Neurological Exam Neurological exam: Present: alert, oriented X3 Results - Labs CBC & BMP: 02/07/17 05:44 02/06/17 08:27
[2017-02-08 16:11] LABS: Basophils # 0.1 10*3/uL (0.0-0.2); Basophils % 0.8 % (0.0-0.8); Eosinophils % 49.3 % (0.00-10.9); Hematocrit 49.5 VOL% (42.0-52.0); Hemoglobin 17.5 GM/DL (14.0-18.0); Immature Granulocytes % 0.4 %; Immature Granulocytes Absolute 0.05 #; Lymphocytes # 2.2 10*3/uL (1.4-4.0); Lymphocytes % 17.8 % (21.2-54.2); Mean Corpuscular HGB Conc 35.4 GM/DL (32-36); Mean Corpuscular Hemoglobin 32 PG (27-34); Mean Corpuscular Volume 89.7 FL (87-102); Mean Platelet Volume 10.6 FL (9.6-12.0); Monocytes # 0.7 10*3/uL (0.11-0.8); Monocytes % 5.4 % (1.7-12.7); Neutrophils # 3.2 10*3/uL (1.4-7.4); Neutrophils % 26.3 % (38.7-73.9); Platelet Count 209 T/CUMM (130-400); Red Blood Count 5.52 MC/CUMM (3.8-5.5); Red Cell Distribution Width 12.3 % (9.3-17.3); White Blood Count 12.1 T/CUMM (4-12)
[2017-02-08 16:41] LABS: Eosinophils 49 % (0-10); Lymphocytes 14 % (20-55); Platelet Estimate Normal; Segmented Neutrophils 32 % (50-85); Total Cells Counted 100
[2017-02-09] MEDS: CIPROFLOXACIN INJ 400 MG in PREMIX 1 EACH IV SCH ×2 (00:35→11:34)
[2017-02-09 05:42] LABS: Basophils # 0.1 10*3/uL (0.0-0.2); Basophils % 0.8 % (0.0-0.8); Eosinophils # 7.1 10*3/uL (0.0-0.87); Eosinophils % 48.4 % (0.00-10.9); Hematocrit 45.6 VOL% (42.0-52.0); Immature Granulocytes % 0.3 %; Immature Granulocytes Absolute 0.05 #; Lymphocytes # 2.4 10*3/uL (1.4-4.0); Lymphocytes % 16.8 % (21.2-54.2); Mean Corpuscular HGB Conc 35.1 GM/DL (32-36); Mean Corpuscular Hemoglobin 32 PG (27-34); Mean Corpuscular Volume 90.1 FL (87-102); Mean Platelet Volume 10.8 FL (9.6-12.0); Monocytes # 0.9 10*3/uL (0.11-0.8); Monocytes % 6.4 % (1.7-12.7); Neutrophils % 27.3 % (38.7-73.9); Platelet Count 186 T/CUMM (130-400); Red Blood Count 5.06 MC/CUMM (3.8-5.5); Red Cell Distribution Width 12.3 % (9.3-17.3); White Blood Count 14.6 T/CUMM (4-12)
[2017-02-09] MEDS: metroNIDAZOLE INJ 500 MG in PREMIX 1 EACH IV SCH (05:44)
[2017-02-09] MEDS: LACTATED RINGERS 1,000 ML IV SCH ×2 (05:44→09:42)
[2017-02-09 06:16] LABS: Eosinophils 51 % (0-10); Hypochromasia 1+; Lymphocytes 17 % (20-55); Platelet Estimate Normal; Segmented Neutrophils 27 % (50-85); Total Cells Counted 100
[2017-02-09 06:17] LABS: Giant Platelets Few
[2017-02-09] MEDS: PANTOPRAZOLE 40 MG TABLET PO SCH (08:21)
--- NOTE | 2017-02-09 10:33 | General Surgery Progress Note ---
Assessment and Plan - Time spent with patient Time spent with patient: Less than 30 minutes (1) Typhlitis Status: Acute Assessment and plan: 26-year-old white male with history of dental problems admitted by Dr. Dover through the emergency room with abdominal pain. Patient does have a right inguinal hernia with some inflammatory changes. He also has a questionable typhlitis. Patient was admitted, started on Cipro and Flagyl, pain and nausea control. Dr. Liao from gastroenterology will be consulted to evaluate. We will go ahead and get labs in the morning. Dr. Dover has seen and examined patient and further recommendations to follow. 02/06/2017 patient's pain is mildly improved today. His white count is higher though at 15. He did not tolerate his clear liquid diet this morning. Recommended to patient to take Zofran prior to his next meal to see if it helps with his nausea. Dr. Liao has seen and examined patient and he suspects Crohn 's disease versus infectious colitis versus C. difficile though the patient does not have diarrhea. He is checking stool studies and recommends continuing Cipro and Flagyl. He would like patient to be able to tolerate his bowel prep for C scope later in his admission. Dr. Dover will see and examine patient and further recommendations to follow. 02/07/2017 patient feels much better today with much less pain except for minimally in the right lower quadrant. Continues to have reducible right inguinal hernia that will need fixed when infection clears. Dr. Dover would prefer to do this during his hospital stay if possible. Dr. Liao is concerned patient may have a parasite infection due to 50% eosinophilia on CBC differential versus Crohn's. Patient is being kept on clears today and will undergo colon prep for C scope in the morning by Dr. Liao. Discussed with Dr. Dover 02/08/2017 patient feels 100% today. He is having no nausea or vomiting with clear liquid diet or with the prep. He has no complaints of pain in the abdomen. Dr. Liao is taking the patient for C scope today. Stool studies thus far are negative. He is afebrile and his white count is down to 13.4. Depending on what Dr. Liao sees on C scope will depend on patient's plan of care. Home later this evening versus possible surgery tomorrow for hernia repair. Discussed with Dr. Dover. 02/09/2017 patient is feeling better and tolerating a regular diet. Dr. Liao did find some sigmoid inflammation and did a warm biopsy that was sent to the lab. He was unsure if this was a hookworm or tapeworm. He did not see any signs of Crohn's. He is awaiting O&P's and recommends high-fiber diet and consultation to infectious disease. Dr. Reynolds will see the patient this morning but has recommended Albentazole to be taken at lunch today. Patient can be discharged home today if okay with Dr. Reynolds and Dr. Liao and will see about follow-up with both of them. Otherwise Dr. Dover we will see him in 1 month, once infection clears for repair of his right inguinal hernia. Current Visit: Yes (2) Right inguinal hernia Status: Acute Current Visit: Yes (3) Right lower quadrant abdominal pain Status: Acute Current Visit: Yes Subjective Narrative: Patient feels good today. He is tolerating regular diet and he has no complaints of abdominal pain. 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 Exam - Constitutional Vitals: Period Temp Pulse Resp BP Sys/Contreras Pulse Ox Last 24 Hr 97.6 F-98.3 F 49-79 15-20 90-137/52-95 97-100 Exam: 26-year-old white male, no acute distress, alert and oriented Chest clear CV regular rate and rhythm Abdomen soft nontender Extremities no edema Results - Labs CBC & BMP: 02/09/17 04:59 02/06/17 08:27 Lab Results: I have reviewed the past 24 hour labs Quality Measures - VTE Contraindication to Pharmacological VTE Prophylaxis: Clinical assessment deems Pt at low risk, no prophalaxis needed
--- NOTE | 2017-02-09 11:08 | Gastrointestinal Progress Note ---
Assessment and Plan (1) Right lower quadrant abdominal pain Status: Acute Assessment and plan: Again this patient has 2 distinct pains one is associated with his right inguinal hernia, a intermittent pain that is less annoying than the periumbilical sharp pain. The inguinal hernia is been present since patient was age 14 he states. Given the CT scan findings this is possibly a enterocolitis mostly affecting the cecal/TI region versus possibly Crohn's disease versus less likely C. difficile given his exposure to clindamycin. The major flaw in these particular diagnoses is the lack of diarrhea and the fact that the patient does not feel better after he is evacuating his stool with help of Dulcolax. His presentation certainly atypical from that standpoint however his systemic illness is certainly adding to his nausea and vomiting, gentle hydration, antibiotics and likely some MiraLAX should help out with this pain ultimately. I would like to be able to get him to the point where he can tolerate a clear liquid diet and undergo colonoscopy in order to definitively rule out Crohn's disease while looking for C. difficile vs. infectious colitis. We will monitor his white blood cell count look at his sedimentation rate, try clear liquids and see how he responds to the MiraLAX. Hopefully over the next few days he will feel well enough to tolerate a prep. Risks of colonoscopy include but are not limited to: Bleeding, infection, perforation, cardiac and pulmonary compromise. 02/06/17--the patient is going to try his clear liquids today to see have the stay down. We have gotten her stool studies to look at for fecal white blood cells, stool culture, or C. difficile. Again I strongly suspect this patient may either have Crohn's disease versus infectious colitis although C. difficile remains in the differential. We need to track his white blood cell count now that he is on Cipro and Flagyl, these can be switched to oral once he is reliably taking p.o. intake. Possible colonoscopy later this admission if the patient does well with clears we can possibly give him a bowel prep--will write for this tomorrow if he is doing well. 02/07/17--50% eosinophilia is not a fluke on CBC differential. Called specifically for hand diff confirmation (no answer), left message to caregiver. This level of eosinophilia likely due to parasites vs. Crohn's. Since tolerating clears will prep for colo tomorrow. Keep on clears, needs O&P x 3 stools. We can likely switch to oral abx and solids post colo tomorrow. May be able to see "worm burden" if present. 02/08/17--Surprisingly, the one finding on the colonoscopy was the appearance of a worm in the sigmoid colon burrowing into the wall. O&P has been ordered, photographs were taken of this worm--would suggest that this might be either roundworm or hookworm, I would recommend getting infectious disease involved at this point. 02/09/17--I discussed the case with Saurabh Rose MD of pathology and we agree this is probably a hookworm infection based on pathologic evaluation of the cell wall and the gross appearance of the warm from photographs compared with atlas photos. The patient is about to get his albendazole is about to be discharged shortly. He can follow-up with me as needed but I believe that all of his symptoms are helminth driven and therefore does not need to. Current Visit: Yes (2) Abnormal CT scan, pelvis Status: Acute Assessment and plan: I think typhlitis is a condition associated with neutropenia not leukocytosis and usually with a immunocompromised host. This is not typhlitis but rather some sort of enterocolitis some etiology. He is likely not old enough to have ischemic etiologies and so this probably represents either inflammatory bowel disease or some sort of infection, provided this is not just an over read by the radiologist. C. difficile does not affect the small bowel making this more likely to be infectious versus inflammatory bowel disease, i.e. Crohn's. 02/06/17--As noted above, the patient does not fit the picture of typhlitis. 02/07/17-- As noted. 02/08/17--The appearance of the terminal ileum and the cecum on colonoscopy were relatively normal, this is not Crohn's disease. 02/09/17--clinically better. Eosinophilia still at 51% but I expect this will not change until the patient has is warm burden reduced. Current Visit: Yes (3) Leukocytosis Status: Acute Assessment and plan: We will need to monitor this over the next several days, as it drops down to the normal range of suspect the patient will be able to tolerate clears and the colonic prep. 02/06/17--CBC from this morning is pending but I suspect the white blood cell count will be significantly improved. 02/07/17-- No significant change. 02/08/17--we will run another CBC tomorrow. 02/09/17-- As noted above Current Visit: Yes (4) Right inguinal hernia Status: Acute Assessment and plan: This is the second of the patient's 2 pains, I suspect Dr. Dover will want to do surgery on the patient at some point, likely after we get his current periumbilical pain/right upper quadrant pain under control. 02/06/17--Treatment as per Dr. Dover. 02/07/17-- Same as above. Pt. does feel better. 02/09/17--Dr. Dover states that he will be fixing this after another office visit in about 1 month. Current Visit: Yes Gastroenterology - PN: Subj Interval history: The patient is doing better at this point although he has not yet had his albendazole treatment his belly pain feels improved. He is ready to be discharged. He is awaiting his medication which had to be ordered in. He does not need follow-up with me as we believe his symptoms are entirely helminth driven. Exam (Progress Note) - Constitutional Vitals: Period Temp Pulse Resp BP Sys/Contreras Pulse Ox Last 24 Hr 97.6 F-98.3 F 49-79 15-20 90-137/52-95 97-100 General appearance: no acute distress - Head Head exam: Present: normal inspection - Eye Eye exam: Present: EOMI Pupils: Present: JERZY - Respiratory Respiratory exam: Present: clear to auscultation bilaterally. Absent: rhonchi, stridor, wheezes - Cardiovascular Cardiovascular exam: Present: regular rate and rhythm - GI/Abdominal GI/Abdominal exam: Present: normal bowel sounds, soft. Absent: distended, tenderness, rebound - Neurological Exam Neurological exam: Present: alert, oriented X3 - Psychiatric Psychiatric exam: Present: normal affect, normal mood - Skin Skin exam: Present: warm Results - Labs CBC & BMP: 02/09/17 04:59 02/06/17 08:27
--- NOTE | 2017-02-09 11:12 | Infectious Disease Consult ---
History of Present Illness Chief complaint: Worm seen on colonoscopy History of present illness: Mr. Duque is a 26 year old male who came and also with abdominal pain. There was concern that he may have had typhlitis. Patient had colonoscopy done and the form was seen in the colon. I am asked to assist with management. Patient never noticed worms in his stool before. He lives in [place] with no history of travel. 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 Patient of fever or other constitutional symptoms. Impression: Hematemesis; in the photo it looks large like ascaris, but however it is hard for me to patrol judge. ID pending at the lab. Recommendations: Albendazole 400 mg p.o. 1 dose. I am not sure family members need to be treated but informed to let her TRANSIT OPERATIONS SUPERVISOR know of her 's diagnosis. She is currently . Daughter also due to see pot puller in a week and she is to inform him of this as well. Thank you very much for the consult. Call again as needed. Discussed with ALFONSO Rao from surgery. Home Medications Medication Instructions Recorded Confirmed Type No Known Home Medications [No 02/05/17 02/05/17 History Known Home Medications] Allergies Allergy/AdvReac Type Severity Reaction Status Date / Time Penicillins Allergy Unknown/Unable Verified 10/03/16 10:19 to obtain Medical,Surgical,& Family Hx - Medical History Neurology: No history of: Seizures HEENT: History of: Dental Problems Reproductive: Reports: Reproductive Problems (testicle mass) - Family History Family History: Reports;: Family Heart Disease - Social History Smoking Status: Current every day smoker Frequency of Alcohol Use: None Type of Drug Use: None Infectious Disease Exam H&P - Constitutional Vitals: Vital Signs Temp Pulse Resp BP Pulse Ox 98.2 F 51 L 18 137/76 98 02/09/17 06:55 02/09/17 06:55 02/09/17 06:55 02/09/17 06:55 02/09/17 06:55 Intake and Output 02/08/17 02/09/17 02/09/17 23:59 07:59 15:59 Intake Total 100 / 100 1000 / 1000 Balance 100 / 100 1000 / 1000 Intake: IV 100 / 100 1000 / 1000 Lr 1,000 ml @ 75 mls/hr 1000 / 1000 IV .[id number] [facility] Rx#: [id number] Flagyl Inj 500 mg In 100 / 100 Premix 1 Each @ 100 mls/ hr IV Q8H [facility] Rx#: [id number] Other: Voiding Method Toilet Toilet # Voids 5 2 # Bowel Movements 0 0 Weight 60.509 kg Patient Weight 02/09/17 23:59 Weight 60.509 kg Exam: General: Patient comfortable, nontoxic appearing HEENT: Mucous membranes pink and moist, anicteric acyanotic, JERZY, no oropharyngeal exudates Neck: Supple, no thyroid gland enlargement Respiratory system: Breath sounds vesicular, no crepitations or wheezes Cardiovascular: Normal S1 and S2, no murmurs appreciated Abdomen: Normal bowel sounds, soft nontender throughout, no organomegaly or mass Genitourinary: No suprapubic pain or bladder distention Extremities: no edema Skin: No rash Reports - Labs CBC & BMP: 02/09/17 04:59 02/06/17 08:27 Labs: Laboratory Results - last 24 hr 02/08/17 02/09/17 15:41 04:59 WBC 12.1 H 14.6 H RBC 5.52 H 5.06 Hgb 17.5 16.0 Hct 49.5 45.6 MCV 89.7 90.1 MCH 32 32 MCHC 35.4 35.1 RDW 12.3 12.3 Plt Count 209 186 MPV 10.6 10.8 Neut % (Auto) 26.3 L 27.3 L Lymph % (Auto) 17.[address] % (Auto) 5.4 6.4 Eos % (Auto) 49.3 H 48.4 H Baso % (Auto) 0.8 0.8 Neut # (Auto) 3.2 4.0 Lymph # (Auto) 2.[address] # (Auto) 0.7 0.9 H Eos # (Auto) 6.0 H 7.1 H Baso # (Auto) 0.1 0.1 Total Counted 100 100 Immature Gran % 0.4 0.3 Nucleated RBC % 0.0 0.0 Immature Gran # 0.05 0.05 Segmented Neutrophils 32 L 27 L Lymphocytes 14 L 17 L Monocytes 5 5 Eosinophils 49 H 51 H Nucleated RBCs # 0.00 0.00 Platelet Estimate Normal Normal Giant Platelets Few Immature Plt Fraction 0.0 0.0 Hypochromasia 1+ - Reports Microbiology: Microbiology 02/05/17 Unknown Stool Culture - Final Stool No enteric pathogens at 48 hrs
[2017-02-09 11:28] VITALS: BP 164/71
[2017-02-09] MEDS ORDERED: ALBENDAZOLE PO SCH (11:30)
--- NOTE | 2017-02-09 14:02 | Discharge Summary ---
Hospital Course - Hospital Course Hospital Course: 26-year-old white male with history of dental problems admitted by Dr. Dover through the emergency room on 02/05/2017 with abdominal pain, fevers, and leukocytosis. Patient did have a right inguinal hernia with inflammatory changes on CT scan that was questionable typhlitis. He was admitted, started on Cipro and Flagyl, pain and nausea control and Dr. Liao from gastroenterology was consulted to evaluate. Patient was able to tolerate a liquid diet and tolerate his prep he was taken to the GI lab on 02/08/[address] Liao for C scope. Dr. Liao did find a parasite and was able to retrieve half of this and sent to the lab. He also took some biopsies of the ascending colon and the cecum. He did see some sigmoid colon inflammation apparently from the worm and some small hemorrhoids noted on retroflex. Patient was feeling much better. He has no nausea vomiting or abdominal pain other than some soreness from his inguinal hernia. Dr. Manzano was consulted and she did order an anti-helminth medication that he was to take one time. Because his is and he does have a daughter Dr. Reynolds recommended the notify her [employer] and the baker apprentice of the findings of her . Lab did state that this was a hookworm that was found. Dr. Dover we will see the patient in 1 month to set up his right inguinal hernia repair. He does not want to repair this with an active helminth infection. Patient will follow up with Dr. Liao as needed and his office will call him with biopsy results. No follow-up needed with Dr. Manzano. Complete discharge instructions were given to the patient and his in the room. Care coordination, chart review, and completed discharge paperwork took approximately 42 minutes. - Time spent with patient Time with patient DS: Greater than 30 minutes Diagnosis - Discharge Diagnosis (1) Typhlitis Status: Acute (2) Right inguinal hernia Status: Acute (3) Right lower quadrant abdominal pain Status: Acute Specialty Discharge - Follow Up or Referrals Follow up with: Julius Dover MD [Physician] - 03/12/17 9:00 am Discharge Plan - Discharge Data Disposition: Disch To Home/Self Care Condition at Discharge: Stable Discharge Diet: advance to your usual diet Activity: resume usual activities as tolerated Hygiene: may shower Driving: no restrictions Contact your physician if you experience:: fever over 101, Nausea/Vomiting, pain uncontrolled by pain medications - Discharge Medications No Action No Known Home Medications [No Known Home Medications] - Follow Up or Referral Follow Up: Julius Dover MD [Physician] - 03/12/17 9:00 am Sandeep Liao MD [Physician] - (Follow-up as needed. Give patient Dr. Liao's office number) - Forms/Instructions Exam - Constitutional Vitals: Period Temp Pulse Resp BP Sys/Contreras Pulse Ox Last 24 Hr 97.6 F-98.9 F 49-77 18-20 90-164/52-95 97-100 Discharge Results Labs on day of discharge: Labs from last 24 hours 02/09/17 02/08/17 04:59 15:41 WBC 14.6 H 12.1 H RBC 5.06 5.52 H Hgb 16.0 17.5 Hct 45.6 49.5 MCV 90.1 89.7 MCH 32 32 MCHC 35.1 35.4 RDW 12.3 12.3 Plt Count 186 209 MPV 10.8 10.6 Neut % (Auto) 27.3 L 26.3 L Lymph % (Auto) 16.8 L 17.8 L [place] % (Auto) 6.4 5.4 Eos % (Auto) 48.4 H 49.3 H Baso % (Auto) 0.8 0.8 Neut # (Auto) 4.0 3.2 Lymph # (Auto) 2.4 2.2 [place] # (Auto) 0.9 H 0.7 Eos # (Auto) 7.1 H 6.0 H Baso # (Auto) 0.1 0.1 Total Counted 100 100 Immature Gran % 0.3 0.4 Nucleated RBC % 0.0 0.0 Immature Gran # 0.05 0.05 Segmented Neutrophils 27 L 32 L Lymphocytes 17 L 14 L Monocytes 5 5 Eosinophils 51 H 49 H Nucleated RBCs # 0.00 0.00 Platelet Estimate Normal Normal Giant Platelets Few Immature Plt Fraction 0.0 0.0 Hypochromasia 1+ DS: Provider Date of admission: 02/05/17 12:11 Primary care physician: . No PCP Attending physician on admission: Julius Dover MD Consults: 02/05/17 15:54 Consult to Physician [CONS] Routine Comment: Consulting Provider: Sandeep Liao Consulting Provider Notified: Yes When should Consulting Provider be notified: Now Person Notified: roma nguyen Date Notified: 02/05/17 Time Notified: 16:21 02/08/17 14:52 Consult to Physician [CONS] Routine Comment: Consulting Provider: Ara Manzano When should Consulting Provider be notified: Now Consult Notification Comment: MARY NOTIFIED HER Discharging clinician: ALFONSO Saleem Expected date of discharge: 02/09/17
--- NOTE | 2017-02-09 19:27 | Pathology Report from [facility] ---
[facility] ACCESSION # : [id number] PATIENT NAME : Vicenta Duque ORDERING DR : Sandeep Liao MD CLINICAL HX: Abdominal pain - Weight loss POST-OP DX: #1 Worm #2 R/O Crohns #3 Inflammation SPECIMEN INFO: #1 Worm in sigmoid #2 Biopsy of terminal ileum #3 Biopsy cecum/ ascending GROSS DESCRIPTION: #1 Received in formalin labeled with the patients name VICENTA DUQUE and #1 consists of a 0.6 x 0.3 cm aggregate of soft sweeney material. Submitted in cassette #1.#2 Received in formalin labeled with the patients name VICENTA DUQUE and #2 consists of a 0.8 x 0.3 cm aggregate of sweeney tissue. Submitted in cassette #2.#3 Received in formalin labeled with the patients name VICENTA DUQUE and #3 consists of a 0.6 x 0.4 cm aggregate of sweeney tissue. Submitted in cassette #3. DIAGNOSIS FOR VICENTA DUQUE: #1 SIGMOID COLON BIOPSY: Mild chronic colitis with marked eosinophilia and fragments of intestinal worm c/w Hookworm.#2 TERMINAL ILEAL BIOPSIES: Mild acute ileitis with marked eosinophilia.#3 CECAL AND ASCENDING BIOPSIES: Acute self limited colitis with moderate eosinophilia.NOTE: Features of idiopathic inflammatory bowel disease are not appreciated. COLLECTED DATE: 02/08/2017 [facility] REPORT DATE: 02/09/2017 ELECTRONICALLY SIGNED BY: Saurabh Mac M.D. 02/09/2017 - 11:08:37 [facility]
== END 2017-02-09 14:40 | disposition home or self-care (01) | DRG 373 ==
LOC: N.ED 09:14 → N.EDINP 12:11 → N.3E 14:05
PROVIDERS: ADMIT Surgery; ATTEND Surgery
PROC: COLONBX (2017-02-08 07:05)